=== PATIENT | male | born 1950 | race Caucasian/White ===

== ENCOUNTER → 2016-11-28 | Outpatient (CLI) | payer OTHER ==
[2016-11-28 11:28] LABS: BLOOD UREA NITROGEN 10 mg/dL (7-22); CALCIUM 8.7 mg/dL (8.7-10.7); CHOL/HDL RATIO 3.75 RATIO (0-4.0); EST GLOMERULAR FILTRATION > 60 (>60 ml/min/1.73m(2)); HDL CHOLESTEROL 48 mg/dL (40-150); SERUM ALBUMIN 4.2 g/dL (3.5-4.8); SERUM CHOLESTEROL 180 mg/dL (120-200)
[2016-11-28 11:44] LABS: HEMOGLOBIN A1C 5.22 % (4.2-6.0)
[2016-11-28 11:44] LABS: HEMATOCRIT 42.1 % (42.0-52.0); HEMOGLOBIN 15.3 g/dL (14.0-18.0); MEAN CORPUSCULAR HEMOGLOBIN 32.8 PG (27-31); MEAN CORPUSCULAR HGB CONC 36.3 g/dL (33-37); MEAN CORPUSCULAR VOLUME 90.1 FL (80-90); MEAN PLATELET VOLUME 9.4 FL (7.4-12.2); RED BLOOD COUNT 4.67 10^6/uL (4.70-6.10)
== END ==
LOC: LAB 10:54
PROVIDERS: ATTEND Nurse Practitioner Family
DX: I10 Essential (primary) hypertension (principal); E78.5 Hyperlipidemia, unspecified; R73.01 Impaired fasting glucose; R97.20 Elevated prostate specific antigen [PSA]; Z85.46 Personal history of malignant neoplasm of prostate; Z12.5 Encounter for screening for malignant neoplasm of prostate
CPT/HCPCS: 36415; 80053; 80061; 83036; 85027; G0103